=== PATIENT | female | born 1955 | race Caucasian/White ===

== ENCOUNTER 2016-10-09 17:26 | Emergency (ER) | payer OTHER ==
[~2016-10-09] VITALS: Ht 154.9 cm; Wt 67.0 kg
[~2016-10-09 17:26] MED LIST: ASPI-664 PO; ATOR20TA38 PO; CARV12.579 PO; FAMO20TA18 PO; FURO20TA3 PO; GABA-526 PO; INSU100C SC; ISOS60TA PO; LANT3I SC; LOSA50TA6 PO; METF-388 PO; NITR0.4T6 SL; PRAS10TA6 PO; RANO500T2 PO; ZOLP5TAB6 PO
[2016-10-09 17:46] VITALS: Ht 154.9 cm; Wt 67.0 kg
[2016-10-09] MEDS ORDERED: morphine 4 MG/ML VIAL IV STA ×2 (18:13→18:18)
[2016-10-09] MEDS ORDERED: ONDANSETRON 4 MG INJ IV STA ×2 (18:13→18:18)
[2016-10-09] MEDS ORDERED: ASPIRIN 325 MG TAB PO STA (18:18)
[2016-10-09 18:44] LABS: BASOPHILS % 0.3 % (0.0-2.0); EOSINOPHILS # 0.2 10^3/ul (0.0-0.5); EOSINOPHILS % 1.7 % (0.0-7.0); HEMATOCRIT 35.7 % (37.0-47.0); HEMOGLOBIN 11.6 g/dl (12.0-16.0); LYMPHOCYTES # 2.2 10^3/ul (0.8-2.9); MEAN CORPUSCULAR HEMOGLOBIN 32.3 pg (29.0-33.0); MEAN CORPUSCULAR HGB CONC 32.6 g/dl (32.0-37.0); MEAN CORPUSCULAR VOLUME 99.1 fl (82.0-101.0); MEAN PLATELET VOLUME 11.1 fl (7.4-10.4); MONOCYTE # 1.2 10^3/ul (0.3-0.9); NEUTROPHIL # 7.3 10^3/ul (1.6-7.5); PLATELET COUNT 267 10^3/UL (140-440); RED CELL DISTRIBUTION WIDTH 13.9 % (11.5-14.5); UNCORRECTED WBC 10.9 10^3/ul (4.8-10.8); WHITE BLOOD COUNT 10.9 10^3/ul (4.8-10.8)
[2016-10-09 18:49] LABS: CONDITION 1
--- NOTE | 2016-10-09 18:51 | RADRPT ---
PROCEDURE: XR Chest. CLINICAL INDICATION: Chest pain. TECHNIQUE: Single frontal view of the chest was obtained COMPARISON: 06/11/2016. FINDINGS: Mild cardiomegaly. Mild patchy air space disease at mid lung and lung bases. There is no pleural effusion or pneumothorax. IMPRESSION: Mild failure. RPTAT: [facility] Physician Monique Date Time Electronically viewed and signed by Nina Chiagn Physician on 10/09/2016 18:50 RS/
[2016-10-09 18:56] LABS: INR 0.85; PROTIME 11.6 Sec (12.2-14.2); PT RATIO 0.9
[2016-10-09 18:57] LABS: PARTIAL THROMBOPLASTIN TIME 30.2 Sec (25.0-35.0)
[2016-10-09 19:07] LABS: CHLORIDE 100 mmol/L (97-110); POTASSIUM 5.5 mmol/L (3.5-5.1); SODIUM 139 mmol/L (135-144)
[2016-10-09 19:10] LABS: ANION GAP 19 (8-16); BLOOD UREA NITROGEN 49 mg/dl (7-20); CARBON DIOXIDE 26 mmol/L (21-31); GLUCOSE 324 mg/dl (70-220)
[2016-10-09 19:11] LABS: CALCIUM 9.2 mg/dl (8.4-10.2)
[2016-10-09 19:20] LABS: B-TYPE NATRIURETIC PEPTIDE 483 PG/ML (0-125)
[2016-10-09 19:32] LABS: TROPONIN-I < 0.012 ng/ml (0.00-0.12)
[2016-10-09] MEDS ORDERED: NITROGLYCERIN (SL) 0.4 MG TAB SL ONE (21:30)
[2016-10-09 23:28] VITALS: BP 106/68; PULSE 84; RESP 18; TEMP 98.6
--- NOTE | 2016-10-09 23:55 | ERA ---
ER Documentation Chief Complaint Date/Time DATE: 10/09/16 TIME: 23:46 Chief Complaint CHEST PAIN STARTED TODAY RADIATES TO LEFT ARM HPI This 61-year-old female presents with substernal chest pain rating down her left arm described as a pressure-like sensation associated with mild shortness of breath. Chest pain began approximately 4 hours ago and has improved somewhat. She states that this is the same feeling she had when she had her heart attack here in January. She denies nausea or vomiting. I reviewed her electronic medical record ejection had a ST elevation MT in January. ROS All systems reviewed and are negative except as per history of present illness. Medications Home Meds Active Scripts Ranolazine* (Ranexa*) 500 Mg Tab.sr.12h, 1000 MG PO Q12 for 90 Days, #90 TAB 7 Refills Prov:MARCOS STEPHENS MD 02/03/16 Prasugrel Hydrochloride* (Effient*) 10 Mg Tablet, 10 MG PO DAILY for 90 Days, # 90 TAB 2 Refills Prov:MARCOS STEPHENS MD 02/03/16 Reported Medications Isosorbide Mononitrate* (Isosorbide Mononitrate*) 60 Mg Tab.er.24h, 90 MG PO DAILY, TAB 06/11/16 Furosemide* (Furosemide*) 20 Mg Tablet, 20 MG PO DAILY, #30 TAB 06/11/16 Famotidine* (Famotidine*) 20 Mg Tablet, 20 MG PO QHS, #30 TAB 06/11/16 Metformin Hcl* (Metformin Hcl*) 1,000 Mg Tablet, 1000 MG PO WITH BREAKFAST, #30 TAB 06/11/16 Aspirin* (Aspirin* (EC)) 81 Mg Tablet.dr, 81 MG PO DAILY, TAB 09/25/15 Gabapentin* (Gabapentin*) 600 Mg Tablet, 600 MG PO QHS, #60 TAB 09/25/15 Carvedilol* (Carvedilol*) 12.5 Mg Tablet, 12.5 MG PO BID, TAB 09/25/15 Insulin Lispro (Humalog) 100 U/Ml Cartridge, 5-8 UNITS SC SLIDING SCALE AC, EA 08/20/15 Nitroglycerin* (Nitroglycerin* SL) 0.4 Mg Tab.subl, 0.4 MG SL Q5MIN Y for CHEST PAIN, BOTTLE 04/01/15 Zolpidem Tartrate* (Zolpidem Tartrate*) 5 Mg Tablet, 5 MG PO HS Y, TAB 01/14/15 Insulin Glargine* (Lantus*) 100 Unit/Ml Soln, 24 UNIT SC QHS, EA 10/10/14 Atorvastatin Calcium* (Atorvastatin Calcium*) 20 Mg Tablet, 20 MG PO DAILY 07/19/13 Losartan Potassium* (Losartan Potassium*) 50 Mg Tablet, 50 MG PO DAILY 07/19/13 Allergies Allergies: Coded Allergies: No Known Allergies (Verified Allergy, Unknown, 10/09/16) PMhx/Soc History of Surgery: Yes (LEFT NEPHRECTOMY) Anesthesia Reaction: No Hx Neurological Disorder: No Hx Respiratory Disorders: No Hx Psychiatric Problems: No Hx Miscellaneous Medical Probl: No Hx Alcohol Use: No Hx Substance Use: No Hx Tobacco Use: No Smoking Status: Unknown if ever smoked Physical Exam Vitals Vital Signs Date Time Temp Pulse Resp B/P Pulse Ox O2 Delivery O2 Flow Rate FiO2 10/09/16 23:28 98.6 84 18 106/68 100 Nasal Cannula 2.0 10/09/16 21:27 92 18 104/61 97 Nasal Cannula 2.0 10/09/16 19:42 99.0 101 18 151/78 98 Nasal Cannula 2.0 10/09/16 18:27 109 18 144/78 98 Nasal Cannula 2.0 10/09/16 18:00 Nasal Cannula 2 10/09/16 17:46 97.8 120 20 154/71 99 Physical Exam Const: [] No distress Head: Atraumatic Eyes: Normal Conjunctiva ENT: Normal External Ears, Nose and Mouth. Neck: Full range of motion..~ No meningismus. Resp: Clear to auscultation bilaterally Cardio: Regular tachycardia, no murmurs Abd: Soft, non tender, non distended. Normal bowel sounds Skin: No petechiae or rashes Back: No midline or flank tenderness Ext: No cyanosis, or edema Neur: Awake and alert and oriented 3, no focal deficits Psych: Normal Mood and Affect Result Diagram: 10/09/16181910/09/161819 Results 24 hrs Laboratory Tests Test 10/09/16 18:20 Activated Partial Thromboplast Time 30.2Sec Anion Gap 19 B-Type Natriuretic Peptide 483PG/ML Basophils # 0.010^3/ul Basophils % 0.3% Blood Morphology Comment Blood Urea Nitrogen 49mg/dl Calcium Level 9.2mg/dl Carbon Dioxide Level 26mmol/L Chloride Level 100mmol/L Creatinine 1.20mg/dl Eosinophils # 0.210^3/ul Eosinophils % 1.7% Glucose Level 324mg/dl Hematocrit 35.7% Hemoglobin 11.6g/dl INR International Normalized Ratio 0.85 Lymphocytes # 2.210^3/ul Lymphocytes % 20.0% Mean Corpuscular Hemoglobin 32.3pg Mean Corpuscular Hemoglobin Concent 32.6g/dl Mean Corpuscular Volume 99.1fl Mean Platelet Volume 11.1fl Monocytes # 1.210^3/ul Monocytes % 11.0% Neutrophils # 7.310^3/ul Neutrophils % 67.0% Nucleated Red Blood Cells # 0.010^3/ul Nucleated Red Blood Cells % 0.0/100WBC Platelet Count 58241^3/UL Potassium Level 5.5mmol/L Prothrombin Time 11.6Sec Prothrombin Time Ratio 0.9 Red Blood Count 3.6010^6/ul Red Cell Distribution Width 13.9% Sodium Level 139mmol/L Troponin I < 0.012ng/ml White Blood Count 10.910^3/ul Current Medications Medications (Trade) Dose Ordered Sig/Glenn Route PRN Reason Start Time Stop Time Status Last Admin Dose Admin Morphine Sulfate (morphine) 4 mg ONCE STAT IV 10/09/16 18:13 10/09/16 18:15 DC 10/09/16 18:19 Ondansetron HCl (Zofran Inj) 4 mg ONCE STAT IV 10/09/16 18:13 10/09/16 18:15 DC 10/09/16 18:19 Aspirin (Aspirin) 325 mg ONCE STAT PO 10/09/16 18:18 10/09/16 18:19 DC 10/09/16 18:18 Morphine Sulfate (morphine) 4 mg ONCE STAT IV 10/09/16 18:18 10/09/16 18:19 DC Ondansetron HCl (Zofran Inj) 4 mg ONCE STAT IV 10/09/16 18:18 10/09/16 18:19 DC Nitroglycerin (Nitroglycerin (Sl Tab) 0.4 Mg) 1 tab ONCE ONCE SL 10/09/16 21:30 10/09/16 21:31 DC 10/09/16 21:27 Procedures/MDM This 61-year-old female presents with chest pain similar to her prior heart attack with initial tachycardia that was resolved with pain control. She was given aspirin, morphine, nitroglycerin. Also elevated potassium at 5.5 and was given 20 mg of Lasix to reduce potassium. She had a hyperglycemia and was given 500 mL of normal saline to decrease this. Her chest pain did diminish significantly in the emergency room she had only mild chest pain present. Spoke with Dr. Sloan, of [facility], stated he would accept transfer the patient should be transferred for insurance reasons to [facility]. Gary spoke with the patient and her family about this insurance base transfer. Initial troponin is negative and EKGs are nonischemic. Patient be admitted for further troponin trending and workup. EKG interpretation #1: Sinus tachycardia rate of 123, indeterminate axis, no ST or T-wave changes concerning for acute ischemia, Q waves in septal leads, EKG interpretation #2: Sinus tachycardia rate of 106, left axis deviation, no ST or T-wave changes concerning for acute ischemia Chest x-ray interpretation: I See no acute process, mild pulmonary vascular congestion, no pulmonary edema, pneumothorax no infiltrates, no fractures teletypesetter monitor interpretation: Initial sinus tachycardia was transitioned to normal sinus rhythm. Departure Diagnosis: Primary Impression: Chest pain Additional Impressions: Hyperglycemia Hyperkalemia Renal insufficiency Condition: Stable RICHY BISHOP DO Oct 09, 2016 23:55
[2016-10-10] MEDS ORDERED: SOD CHLORIDE 0.9% 500 ML IV ONE
[2016-10-10] MEDS ORDERED: FUROSEMIDE 20 MG INJ IV ONE
== END 2016-10-10 00:38 | disposition short-term general hospital (02) ==
LOC: E/R 17:26
DX: R07.9 Chest pain, unspecified (principal); E87.5 Hyperkalemia; N28.9 Disorder of kidney and ureter, unspecified; R06.02 Shortness of breath; E11.65 Type 2 diabetes mellitus with hyperglycemia; Z79.4 Long term (current) use of insulin; Z79.84 Long term (current) use of oral hypoglycemic drugs; Z79.82 Long term (current) use of aspirin
CPT/HCPCS: 36415; 71010; 80048; 83880; 84484; 85025; 85610; 85730; 93005; 96374; 96375; J1940; J2270; J2405; J7040; Z7502; Z7610

== ENCOUNTER 2016-11-10 08:44 | Emergency (ER) | payer OTHER ==
[~2016-11-10] VITALS: Ht 154.9 cm; Wt 70.0 kg
[~2016-11-10 08:44] MED LIST changes: -METF-388 PO; +METF1000 PO
[2016-11-10] MEDS ORDERED: ASPIRIN 81 MG TAB PO STA (08:47)
[2016-11-10] MEDS ORDERED: ONDANSETRON 4 MG INJ IV STA (08:47)
[2016-11-10] MEDS ORDERED: NITROGLYCERIN 2% 1 GM OINT PKT TD STA (08:47)
[2016-11-10 08:50] VITALS: Ht 154.9 cm; Wt 70.0 kg
[2016-11-10] MEDS ORDERED: NITROGLYCERIN (SL) 0.4 MG TAB SL PRN (09:00)
[2016-11-10 09:37] LABS: ALBUMIN 3.9 g/dl (3.3-4.9); CHLORIDE 102 mmol/L (97-110)
--- NOTE | 2016-11-10 09:37 | RADRPT ---
PROCEDURE: Chest x-ray CLINICAL INDICATION: Pain. TECHNIQUE: One-view frontal. COMPARISON: 10/09/2016 FINDINGS: The cardiac silhouette is mildly enlarged. No infiltrates are noted. No hilar abnormalities are identified. No pneumothorax or pleural effusions are visualized. There is resolution of mild pulmonary vascular congestion that is visualized on the previous study. IMPRESSION: 1. No active cardiopulmonary changes. RPTAT: HH .Anoop Muse MD, MD Date Time Electronically viewed and signed by .Anoop Muse MD, on 11/10/2016 09:37 .G/
[2016-11-10 09:38] LABS: SODIUM 143 mmol/L (135-144)
[2016-11-10 09:39] LABS: INR 0.89; PARTIAL THROMBOPLASTIN TIME 25.8 Sec (25.0-35.0); PT RATIO 0.9
[2016-11-10 09:40] LABS: ALANINE AMINOTRANSFERASE 26 IU/L (13-69); ALBUMIN/GLOBULIN RATIO 1.21; ALKALINE PHOSPHATASE 87 IU/L (42-121); ANION GAP 17 (8-16); ASPARTATE AMINO TRANSFERASE 26 IU/L (15-46); BILIRUBIN,INDIRECT 0.1 mg/dl (0-1.1); BILIRUBIN,TOTAL 0.1 mg/dl (0.2-1.3); BLOOD UREA NITROGEN 40 mg/dl (7-20); CALCIUM 9.2 mg/dl (8.4-10.2); CARBON DIOXIDE 28 mmol/L (21-31); CREATININE 1.33 mg/dl (0.44-1.00); GLUCOSE 156 mg/dl (70-220); TOTAL PROTEIN 7.1 g/dl (6.1-8.1)
[2016-11-10 09:49] LABS: BASOPHILS % 0.5 % (0.0-2.0); EOSINOPHILS # 0.4 10^3/ul (0.0-0.5); HEMATOCRIT 33.1 % (37.0-47.0); HEMOGLOBIN 11.1 g/dl (12.0-16.0); LYMPHOCYTES # 2.8 10^3/ul (0.8-2.9); LYMPHOCYTES % 35.3 % (15.0-51.0); MEAN CORPUSCULAR HEMOGLOBIN 33.2 pg (29.0-33.0); MEAN CORPUSCULAR HGB CONC 33.6 g/dl (32.0-37.0); MEAN CORPUSCULAR VOLUME 98.8 fl (82.0-101.0); MEAN PLATELET VOLUME 11.5 fl (7.4-10.4); MONOCYTE # 0.8 10^3/ul (0.3-0.9); MONOCYTES % 10.7 % (0.0-11.0); NEUTROPHIL # 3.8 10^3/ul (1.6-7.5); NEUTROPHILS % 48.5 % (39.0-77.0); PLATELET COUNT 221 10^3/UL (140-440); RED BLOOD COUNT 3.35 10^6/ul (4.20-5.40); RED CELL DISTRIBUTION WIDTH 13.7 % (11.5-14.5); UNCORRECTED WBC 7.9 10^3/ul (4.8-10.8); WHITE BLOOD COUNT 7.9 10^3/ul (4.8-10.8)
[2016-11-10 09:52] LABS: CONDITION 1
[2016-11-10 09:54] LABS: TROPONIN-I < 0.012 ng/ml (0.00-0.12)
--- NOTE | 2016-11-10 10:11 | ERD ---
ER Documentation Chief Complaint Date/Time DATE: 11/10/16 TIME: 10:10 Chief Complaint C/O FLU LIKE S/S AND HAS N/V AP HPI Patient is a 61-year-old female with coronary disease and diabetes who presents with sweating. She said that she woke up from sleep with bilateral ear ringing and sweating. She was vomiting and said that she could not walk and felt "too dizzy". She said that her sugar was 29 at that time. She drank juice and feels better. Upon review of old medical records she was seen on October 09 for chest pain and was transferred to another hospital for admission at that time. She has headache today. She denies chest pain or shortness of breath. Upon review of old medical records she has multiple visits to the ER for various complaints. ROS All systems reviewed and are negative except as per history of present illness. Medications Home Meds Active Scripts Ranolazine* (Ranexa*) 500 Mg Tab.sr.12h, 1000 MG PO Q12 for 90 Days, #90 TAB 7 Refills Prov:MARCOS STEPHENS MD 02/03/16 Prasugrel Hydrochloride* (Effient*) 10 Mg Tablet, 10 MG PO DAILY for 90 Days, # 90 TAB 2 Refills Prov:MARCOS STEPHENS MD 02/03/16 Reported Medications Isosorbide Mononitrate* (Isosorbide Mononitrate*) 60 Mg Tab.er.24h, 90 MG PO DAILY, TAB 06/11/16 Furosemide* (Furosemide*) 20 Mg Tablet, 20 MG PO DAILY, #30 TAB 06/11/16 Famotidine* (Famotidine*) 20 Mg Tablet, 20 MG PO QHS, #30 TAB 06/11/16 Metformin Hcl* (Metformin Hcl*) 1,000 Mg Tablet, 1000 MG PO WITH BREAKFAST, #30 TAB 06/11/16 Aspirin* (Aspirin* (EC)) 81 Mg Tablet.dr, 81 MG PO DAILY, TAB 09/25/15 Gabapentin* (Gabapentin*) 600 Mg Tablet, 600 MG PO QHS, #60 TAB 09/25/15 Carvedilol* (Carvedilol*) 12.5 Mg Tablet, 12.5 MG PO BID, TAB 09/25/15 Insulin Lispro (Humalog) 100 U/Ml Cartridge, 5-8 UNITS SC SLIDING SCALE AC, EA 08/20/15 Nitroglycerin* (Nitroglycerin* SL) 0.4 Mg Tab.subl, 0.4 MG SL Q5MIN Y for CHEST PAIN, BOTTLE 04/01/15 Zolpidem Tartrate* (Zolpidem Tartrate*) 5 Mg Tablet, 5 MG PO HS Y, TAB 01/14/15 Insulin Glargine* (Lantus*) 100 Unit/Ml Soln, 24 UNIT SC QHS, EA 10/10/14 Atorvastatin Calcium* (Atorvastatin Calcium*) 20 Mg Tablet, 20 MG PO DAILY 07/19/13 Losartan Potassium* (Losartan Potassium*) 50 Mg Tablet, 50 MG PO DAILY 07/19/13 Allergies Allergies: Coded Allergies: No Known Allergies (Verified Allergy, Unknown, 10/09/16) PMhx/Soc History of Surgery: Yes (LEFT NEPHRECTOMY) Anesthesia Reaction: No Hx Neurological Disorder: No Hx Respiratory Disorders: No Hx Psychiatric Problems: No Hx Miscellaneous Medical Probl: No Hx Alcohol Use: No Hx Substance Use: No Hx Tobacco Use: No Smoking Status: Never smoker FmHx Family History: diabetes Physical Exam Vitals Vital Signs Date Time Temp Pulse Resp B/P Pulse Ox O2 Delivery O2 Flow Rate FiO2 11/10/16 10:35 98.1 72 16 121/45 100 Room Air 11/10/16 08:50 97.6 68 16 149/50 100 Room Air 11/10/16 08:50 97.8 93 20 148/63 98 Physical Exam Const: Mild distress Head: Atraumatic Eyes: Normal Conjunctiva ENT: Normal External Ears, Nose and Mouth. Neck: Full range of motion..~ No meningismus. Resp: Clear to auscultation bilaterally Cardio: Regular rate and rhythm, no murmurs Abd: Soft, non tender, non distended. Normal bowel sounds Skin: No petechiae or rashes Back: No midline or flank tenderness Ext: No cyanosis, or edema Neur: Awake and alert Psych: Normal Mood and Affect Result Diagram: 11/10/16 0850 11/10/16 0850 Results 24 hrs Laboratory Tests Test 11/10/16 08:50 11/10/16 08:55 Activated Partial Thromboplast Time 25.8Sec Alanine Aminotransferase (ALT/SGPT) 26IU/L Albumin 3.9g/dl Albumin/Globulin Ratio 1.21 Alkaline Phosphatase 87IU/L Anion Gap 17 Aspartate Amino Transf (AST/SGOT) 26IU/L Basophils # 0.010^3/ul Basophils % 0.5% Blood Morphology Comment Blood Urea Nitrogen 40mg/dl Calcium Level 9.2mg/dl Carbon Dioxide Level 28mmol/L Chloride Level 102mmol/L Creatinine 1.33mg/dl Direct Bilirubin 0.00mg/dl Eosinophils # 0.410^3/ul Eosinophils % 5.0% Globulin 3.20g/dl Glucose Level 156mg/dl Hematocrit 33.1% Hemoglobin 11.1g/dl INR International Normalized Ratio 0.89 Indirect Bilirubin 0.1mg/dl Lipase 65U/L Lymphocytes # 2.810^3/ul Lymphocytes % 35.3% Mean Corpuscular Hemoglobin 33.2pg Mean Corpuscular Hemoglobin Concent 33.6g/dl Mean Corpuscular Volume 98.8fl Mean Platelet Volume 11.5fl Monocytes # 0.810^3/ul Monocytes % 10.7% Neutrophils # 3.810^3/ul Neutrophils % 48.5% Nucleated Red Blood Cells # 0.010^3/ul Nucleated Red Blood Cells % 0.0/100WBC Platelet Count 59597^3/UL Potassium Level 4.0mmol/L Prothrombin Time 12.0Sec Prothrombin Time Ratio 0.9 Red Blood Count 3.3510^6/ul Red Cell Distribution Width 13.7% Sodium Level 143mmol/L Total Bilirubin 0.1mg/dl Total Protein 7.1g/dl Troponin I < 0.012ng/ml White Blood Count 7.910^3/ul Bedside Glucose 153mg/dL Current Medications Medications (Trade) Dose Ordered Sig/Glenn Route PRN Reason Start Time Stop Time Status Last Admin Dose Admin Aspirin (Aspirin) 162 mg ONCE STAT PO 11/10/16 08:47 11/10/16 08:57 DC Nitroglycerin (Nitroglycerin 2% Oint) 1 inch ONCE STAT TD 11/10/16 08:47 11/10/16 08:57 DC Nitroglycerin (Nitroglycerin (Sl Tab) 0.4 Mg) 1 tab Q5M UP TO 3 DOSES PRN SL CHEST PAIN 11/10/16 09:00 11/10/16 09:00 DC Ondansetron HCl (Zofran Inj) 4 mg ONCE STAT IV 11/10/16 08:47 11/10/16 08:48 DC 11/10/16 09:19 Procedures/MDM EKG read by me: Rate/Rhythm: Regular rate and rhythm at a rate of 73 Intervals: Normal Impression: No evidence of ischemia or arrhythmia Chest x-ray negative per radiology. Patient is a 61-year-old female with diabetes and coronary disease who presents with hypoglycemia. She had vomiting but feels better now. Her EKG shows no signs of ischemia. Her laboratory studies are basically normal. At this point I do not believe the patient requires admission to the hospital and I believe outpatient management is appropriate. However the patient will need close follow-up with her primary doctor within 24-48 hours for reevaluation. Patient can return sooner for any worsening symptoms. I doubt acute coronary syndrome, bowel obstruction, or appendicitis. Departure Diagnosis: Primary Impression: Vomiting Vomiting type: unspecified Vomiting Intractability: non-intractable Nausea presence: with nausea Qualified Code: R11.2 - Non-intractable vomiting with nausea, unspecified vomiting type Additional Impressions: Anemia Anemia type: unspecified type Qualified Code: D64.9 - Anemia, unspecified type Dehydration Condition: Fair Patient Instructions: Anemia, Vomiting (6Y-Adult) Additional Instructions: Call your primary care doctor TOMORROW for an appointment during the next 1-2 days.See the doctor sooner or return here if your condition worsens before your appointment time. LOS BAH MD Nov 10, 2016 10:11
[2016-11-10 10:35] VITALS: BP 121/45; PULSE 72; RESP 16; TEMP 98.1
== END 2016-11-10 10:37 | disposition home or self-care (01) ==
LOC: E/R 08:44
DX: R11.2 Nausea with vomiting, unspecified (principal); I25.10 Atherosclerotic heart disease of native coronary artery without angina pectoris; E11.9 Type 2 diabetes mellitus without complications; D64.9 Anemia, unspecified; E86.0 Dehydration; R10.9 Unspecified abdominal pain; Z79.4 Long term (current) use of insulin; Z79.84 Long term (current) use of oral hypoglycemic drugs; Z79.82 Long term (current) use of aspirin
CPT/HCPCS: 36415; 71010; 80053; 82962; 83690; 84484; 85025; 85610; 85730; 93005; 96374; J2405; Z7502

== ENCOUNTER 2016-12-14 13:28 | Emergency (ER) | payer OTHER ==
[~2016-12-14] VITALS: Ht 160 cm; Wt 69.5 kg
[2016-12-14 13:57] VITALS: Ht 160 cm; Wt 69.5 kg
[2016-12-14] MEDS ORDERED: ONDANSETRON (ODT) 4 MG TAB ODT STA (15:12)
[2016-12-14] MEDS ORDERED: CIPR500T4 PO (15:31)
[2016-12-14] MEDS ORDERED: CLOT30CR24 TOP (15:31)
[2016-12-14 15:39] VITALS: PULSE 89; RESP 16; TEMP 98
--- NOTE | 2016-12-14 16:16 | ERD ---
DATE OF SERVICE: HISTORY OF PRESENT ILLNESS: The patient is a 61-year-old female coming in complaining of excoriatio ns noted to her right groin. She states that when she got out of the shower, she scratched herself with her nail and she was concerned that she may have reopened up a wound site from a stent placed i september. The patient using Vaseline on the wound site. She has no itching. She has some mild pa in. She also has some dysuria. PAST MEDICAL HISTORY: Denies any other medical problems. ALLERGIES: THERE IS NO ALLERGY TO MEDICATIONS. PAST SURGICAL HISTORY: Stent placement. SOCIAL HISTORY: Denies. REVIEW OF SYSTEMS: A 12-point review of systems ____ refer to HPI for positives, all other systems negative. PHYSICAL EXAMINATION VITAL SIGNS: Temperature is 97.3, pulse is 98, blood pressure is 139/64, respiratory rate 20, O2 sa t 97% on room air. Pain intensity is 7/10. GENERAL: The patient is well-appearing, well-nourished, no acute distress. HEENT: Atraumatic. Conjunctivae are pink. Pupils equal, round, and reactive to light. There is no s cleral icterus. Tympanic membranes clear bilaterally. Oropharynx clear. No nystagmus or photophobia . NECK: C-spine is soft and supple. There is no meningismus. There is no cervical lymphadenopathy. No JVD. No bruits. No goiter. CHEST: Clear to auscultation bilaterally. There are no rales, wheezes or rhonchi. HEART: Regular rate and rhythm. No murmurs, clicks, rubs or gallops. No S3 or S4. ABDOMEN: Normal active bowel sounds heard on auscultation, no distension, no organomegaly. The pat ient has mild tenderness to palpation in the suprapubic region. No CVA tenderness. BACK: No midline or flank tenderness. EXTREMITIES: Equal pulses bilaterally. There is no peripheral clubbing, cyanosis or edema. No focal swelling or erythema. Full range of motion. Grossly neurovascularly intact. NEUROLOGICAL: Alert and oriented. Cranial nerves 2-12 intact. Motor strength in all 4 extremities w ith 5/5 strength. Sensation grossly intact. Normal speech and gait. Babinski negative. DTR 2+ throu ghout. SKIN: The patient has erythema and excoriations noted within the inguinal folds of the right side w ith some moisture and surrounding erythema. No open laceration site. HEMATOLOGIC AND LYMPHATIC: There is no evidence of excessive bruising or lymphedema. No gross cervi shai, axillary, or inguinal lymphadenopathy. PSYCHIATRIC: The patient does not appear anxious or depressed. Normal orientation and judgment. DIAGNOSES: 1. Tinea cruris. 2. Urinary tract infection, symptomatic. EMERGENCY ROOM COURSE: The patient's urine was sent for culture. MEDICAL DECISION MAKING: I have a low suspicion for pyelo, low suspicion for acute abdomen or pelvi c inflammatory infection. I have low suspicion for opening of previous laceration site. The patien t's exam is concerning for fungal infection. I did recommend the patient to keep the site very dry as it was in the skin fold which likely will exacerbate fungal growth. DISCHARGE: The patient is discharged stable. The patient is given prescription for Cipro and ____ ad told to follow up with primary care within 1 to 2 days for reevaluation. The patient was told if symptoms progress or worsen to return to the ER. All other questions answered at time of discharge . Discharge summary given at the time of departure. Patient understood and complied with plan. Dictated By: HAILY NORIEGA for PORFIRIO LOGAN/JOSE Conf#: [id number] DID#: [id number]
== END 2016-12-14 15:40 | disposition home or self-care (01) ==
LOC: FTE 13:28
DX: B35.6 Tinea cruris (principal); N39.0 Urinary tract infection, site not specified; I10 Essential (primary) hypertension; E11.9 Type 2 diabetes mellitus without complications; X58.XXXA Exposure to other specified factors, initial encounter; Y92.9 Unspecified place or not applicable; Z79.4 Long term (current) use of insulin; Z79.82 Long term (current) use of aspirin; Z79.84 Long term (current) use of oral hypoglycemic drugs
CPT/HCPCS: 87086; Z7502; Z7610; 99283

== ENCOUNTER 2017-07-24 10:40 | Inpatient (IN) | END 2017-07-27 00:35 | disposition home or self-care (01) | DRG 682 | DX: I12.9 Hypertensive chronic kidney disease with stage 1 through stage 4 chronic kidney disease, or unspecified chronic kidney disease (principal); N17.0 Acute kidney failure with tubular necrosis; I25.2 Old myocardial infarction; R07.89 Other chest pain; N18.9 Chronic kidney disease, unspecified; Z95.5 Presence of coronary angioplasty implant and graft; Z79.02 Long term (current) use of antithrombotics/antiplatelets; E11.9 Type 2 diabetes mellitus without complications; I95.9 Hypotension, unspecified; M62.830 Muscle spasm of back ==

== ENCOUNTER 2018-12-12 19:22 | Inpatient (IN) | payer MEDICAID, OTHER ==
[~2018-12-12] VITALS: Ht 149.9 cm; Wt 73.6 kg
[~2018-12-12 19:22] MED LIST changes: +ASPI-1046 PO; -ASPI-664 PO; +CLOT30CR24 TOP; -FURO20TA3 PO; +HYDR-3601 PO; -LOSA50TA6 PO; -METF1000 PO; +METF100010 PO; +NITR0.4T32 SL; -NITR0.4T6 SL; -ZOLP5TAB6 PO; +ZOLP5TAB7 PO
--- NOTE | 2018-12-13 00:21 | ERD ---
ER Documentation Chief Complaint Chief Complaint CP TO LEFT ARM, COUGH, HX OF MA, STENTS HPI This is a 63-year-old female with a past medical history of hypertension, hyperlipidemia, diabetes, coronary artery disease with previous MIs status post stenting on Effient, CHF who is presenting with chest pain radiating to the left arm today. The patient has had several days of a fever, chills, productive cough of clear sputum, and she reports that her pain is exacerbated by coughing. However, it did not radiate to the left arm until today. Today, the patient reports that the pain is become more constant and is independent of coughing with associated radiation down the left arm. The symptoms are more similar to her heart attack that she sustained last year, which is ultimately why she came into the emergency department. The patient also endorses mild shortness of breath and nausea. She has not had any vomiting. She does not endorse chest tightness or pleuritic pain or wheezing. She denies diaphoresis. She denies li ghtheadedness or dizziness. The patient does not endorse any other alleviating or exacerbating factors. The patient does not endorse being around any sick contacts. The patient has had no headache or vision changes. The patient does not endorse neck or back pain. The patient denies abdominal pain. The patient denies changes to bowel movements or urination. The patient has had no focal deficits. The patient has had no weakness or numbness or tingling to the face or extremities. ROS All systems reviewed and are negative except as per history of present illness. Medications Home Meds Active Scripts Hydrocodone Bit-Acetaminophen (Hydrocodone Bit-APAP) 5-325MG Tablet, 1 TAB PO Q6H PRN for PAIN LEVEL 4-6, #30 TAB Prov:RENZO BARBOSA MD 07/26/17 Clotrimazole* (Clotrimazole* AF) 1% - 30 Gm Cream.gm., 1 APPLIC TOP BID for 7 Days, TUB Prov:SHILPI GAN PA-C 12/14/16 Ranolazine* (Ranexa*) 500 Mg Tab.sr.12h, 1000 MG PO Q12 for 90 Days, #90 TAB 7 Refills Prov:MARCOS STEPHENS MD 02/03/16 Prasugrel Hydrochloride* (Effient*) 10 Mg Tablet, 10 MG PO DAILY for 90 Days, #90 TAB 2 Refills Prov:MARCOS STEPHENS MD 02/03/16 Reported Medications Isosorbide Mononitrate* (Isosorbide Mononitrate*) 60 Mg Tab.er.24h, 90 MG PO DAILY, TAB 06/11/16 Famotidine* (Famotidine*) 20 Mg Tablet, 20 MG PO QHS, #30 TAB 06/11/16 Metformin Hcl* (Metformin Hcl*) 1,000 Mg Tablet, 1000 MG PO WITH BREAKFAST, #30 TAB 06/11/16 Aspirin* (Aspirin* (EC)) 81 Mg Tablet.dr, 81 MG PO DAILY, TAB 09/25/15 Gabapentin* (Gabapentin*) 600 Mg Tablet, 600 MG PO QHS, #60 TAB 09/25/15 Carvedilol* (Carvedilol*) 12.5 Mg Tablet, 12.5 MG PO BID, TAB 09/25/15 Insulin Lispro (Humalog) 100 U/Ml Cartridge, 5-8 UNITS SC SLIDING SCALE AC, EA 08/20/15 Nitroglycerin* (Nitroglycerin* SL) 0.4 Mg Tab.subl, 0.4 MG SL Q5MIN PRN for CHEST PAIN, BOTTLE 04/01/15 Zolpidem Tartrate* (Zolpidem Tartrate*) 5 Mg Tablet, 5 MG PO HS PRN, TAB 01/14/15 Insulin Glargine* (Lantus*) 100 Unit/Ml Soln, 24 UNIT SC QHS, EA 10/10/14 Atorvastatin Calcium* (Atorvastatin Calcium*) 20 Mg Tablet, 20 MG PO DAILY 07/19/13 Allergies Allergies: Coded Allergies: No Known Allergies (Verified Allergy, Unknown, 10/09/16) PMhx/Soc History of Surgery: Yes (LT KIDNEY REMOVED) Anesthesia Reaction: No Hx Neurological Disorder: Yes (4 STROKES) Hx Respiratory Disorders: No Hx Cardiac Disorders: Yes (HX OF 8 STENT PLACEMENT) Hx Psychiatric Problems: No Hx Miscellaneous Medical Probl: Yes (see H&P) Hx Alcohol Use: No Hx Substance Use: No Hx Tobacco Use: Yes FmHx Family History: diabetes Physical Exam Vitals Vital Signs Date Temp Pulse Resp B/P (MAP) Pulse Ox O2 O2 Flow FiO2 Time Delivery Rate 12/13/18 100.4 02:31 12/13/18 105 18 152/79 98 Room Air 02:30 (103) 12/13/18 100.4 108 18 168/57 98 Room Air 00:30 (94) 12/12/18 100.0 107 18 160/99 98 20:27 (119) Physical Exam Const: No apparent distress, well-developed, well-nourished Head: Normocephalic, Atraumatic Eyes: Normal Conjunctiva. Extraocular movements intact. Pupils equal, round and reactive to light ENT: Normal External Ears, Nose and Mouth. Neck: Full range of motion. No meningismus. Resp: Clear to auscultation bilaterally, No wheezes, rales or rhonchi Cardio: Regular rate and rhythm. No murmurs, rubs or gallops Abd: Soft, non tender, non distended. Normal bowel sounds Skin: No petechiae or rashes Back: No midline tenderness. No CVA tenderness Ext: No cyanosis, or edema Neur: Awake and alert, oriented 4. Cranial nerves intact. No facial droop. Normal strength, sensation and coordination. Psych: Normal Mood and Affect Result Diagram: 12/13/18 0046 12/13/18 0046 Results 24 hrs Laboratory Tests Test 12/13/18 00:46 12/13/18 00:51 White Blood Count 9.5 10^3/ul Red Blood Count 4.05 10^6/ul Hemoglobin 12.4 g/dl Hematocrit 38.8 % Mean Corpuscular Volume 95.8 fl Mean Corpuscular Hemoglobin 30.6 pg Mean Corpuscular Hemoglobin Concent 32.0 g/dl Red Cell Distribution Width 13.7 % Platelet Count 226 10^3/UL Mean Platelet Volume 12.8 fl Immature Granulocytes % 0.400 % Neutrophils % 65.3 % Lymphocytes % 17.5 % Monocytes % 14.2 % Eosinophils % 2.0 % Basophils % 0.6 % Nucleated Red Blood Cells % 0.0 /100WBC Immature Granulocytes # 0.040 10^3/ul Neutrophils # 6.2 10^3/ul Lymphocytes # 1.7 10^3/ul Monocytes # 1.4 10^3/ul Eosinophils # 0.2 10^3/ul Basophils # 0.1 10^3/ul Nucleated Red Blood Cells # 0.0 10^3/ul Prothrombin Time 12.1 Sec Prothrombin Time Ratio 0.9 INR International Normalized Ratio 0.89 Activated Partial Thromboplast Time 28.6 Sec Sodium Level 140 mmol/L Potassium Level 5.3 mmol/L Chloride Level 103 mmol/L Carbon Dioxide Level 26 mmol/L Anion Gap 11 Blood Urea Nitrogen 33 mg/dl Creatinine 1.12 mg/dl Est Glomerular Filtrat Rate mL/min 49 mL/min Glucose Level 199 mg/dl Calcium Level 9.8 mg/dl Total Bilirubin 0.2 mg/dl Direct Bilirubin 0.00 mg/dl Indirect Bilirubin 0.2 mg/dl Aspartate Amino Transf (AST/SGOT) 27 IU/L Alanine Aminotransferase (ALT/SGPT) 17 IU/L Alkaline Phosphatase 138 IU/L Troponin I < 0.012 ng/ml B-Type Natriuretic Peptide 962 PG/ML Total Protein 8.5 g/dl Albumin 4.3 g/dl Globulin 4.20 g/dl Albumin/Globulin Ratio 1.02 Lactic Acid Level 1.1 mmol/L Current Medications Medications Dose Sig/Glenn Start Time Status Last (Trade) Ordered Route PRN Stop Time Admin Dose Reason Admin 650 mg ONCE ONCE 12/13/18 DC 12/13/18 Acetaminophen PO 02:00 02:31 (Tylenol 12/13/18 02:01 Tab) Aspirin 324 mg ONCE ONCE 12/13/18 DC 12/13/18 (Aspirin) PO 02:00 02:32 12/13/18 02:01 Ondansetron 4 mg ER BRIDGE 12/13/18 HCl (Zofran PRN IV 02:30 Inj) NAUSEA/VOMITI 12/14/18 02:29 NG 650 mg ER BRIDGE 12/13/18 Acetaminophen PRN PO 02:30 (Tylenol .MILD PAIN 12/14/18 02:29 Tab) 1-3 OR TEMP Procedures/MDM MDM The patient's presentation warrants further investigation. Previous medical records, if available, were reviewed. LABS The patient's laboratory testing was obtained and reviewed. No emergent treatment was required unless described below. CBC: No E/o systemic infection or severe anemia or thrombocytopenia Chemistry: No E/o severe acidosis or alkalosis or renal failure or liver disease or diabetic ketoacidosis. Mild hyperkalemia, nonemergent. Elevated BUN and creatinine, concerning for dehydration versus intravascular depletion.. PT/INR: No E/o significant coagulopathy Lactate: No E/o severe sepsis Troponin: No E/o acute ischemia BNP: Elevated, potentially related to demand ischemia versus chronic, low clinical suspicion for an acute heart failure exacerbation. Influenza: Negative EKG EKG read by me: Rate/Rhythm: Sinus tachycardia at 112 bpm Intervals: Normal [place]: Left axis deviation. Impression: Q waves in the anterior leads concerning for likely old anterior ischemia. No evidence of acute ischemia. Sinus tachycardia. IMAGING Imaging and Radiology interpretation reviewed. CXR FINDINGS: The cardiomediastinal silhouette is within normal limits. Elevated right hemidiaphragm. The patient body habitus and hypoinflated lungs accentuate pulmonary vascular markings. Mild central vascular crowding is present. The lungs are clear. No signs of pleural fluid or pneumothorax are seen. The osseous structures and soft tissues are unremarkable. Today's plain film examination the chest is similar in appearance to plain film chest examinations dated 11/10/2016 and 07/24/2017. IMPRESSION: No evidence for active cardiopulmonary disease. Electronically viewed and signed by Physician Monique on 12/13/2018 01:54 TREATMENT/DISPOSITION The patient presents with chest pain. The patient has significant cardiac risk factors. I do have some suspicion for the possibility of a cardiac pathology. The patient's age also is a risk factor. The patient's heart score is greater than 3, and I do feel that she would benefit from further assessment in the hospital. The patient was given aspirin in the emergency department. I do feel that the patient's chest pain was exacerbated by an upper respiratory infection. I do suspect a viral etiology. The patient was febrile and tachycardic. That said, the patient has no leukocytosis. The patient does not have evidence of endorgan damage. The patient's lactic acid is within normal limits as well. I have low suspicion for sepsis and I do not feel the patient requires a full septic workup. The patient has a history of heart failure. I do not believe the patient would benefit from a full sepsis bolus of IV fluids. That said, the patient was given a liter of fluids as I am concerned about dehydration and intravascular depletion. The patient's fluid balance will need to be closely monitored in the hospital. I do not see any evidence of pneumonia. I do not feel the patient would benefit from antibiotics. The patient's influenza testing is currently negative. The patient's symptoms have been ongoing for the last 3 days. I do not feel the patient would benefit from Tamiflu even if the study is a false negative. The patient was given Tylenol in the emergency department for her fever. The patient's chest xray does not reveal pneumothorax or pleural effusions or pulmonary edema. The patient does not have a widened mediastinum and does not have signs or symptoms concerning for thoracic aortic aneurysm or dissection. The patient does not have pneumomediastinum or signs concerning for esophageal tear or rupture. The patient has no clinical or radiographic signs of pericardial effusion or tamponade. The patient does not have pneumoperitoneum and I have decreased suspicion of viscus perforation as possible referred pain. The patient does not have a diagnosis of COPD and is not wheezing today. The patient is not tachypneic or hypoxic. The patient is breathing comfortably and without pleuritic pain. The patient is not on hormonal therapy. The patient has no history of clotting or bleeding disorders. The patient has no calf tenderness. The patient has had no hemoptysis. I have decreased suspicion for PE. The patient's troponin and EKG are reassuring. I have low suspicion for acute coronary syndrome. ADMISSION At this time, I feel that the patient requires admission for further evaluation and management. The patient will be admitted to panel in accordance with the patient's insurance. The patient was accepted by Dr. Garland at 0201AM. Disclaimer: Inadvertent spelling and grammatical errors are likely due to EHR/dictation software use and do not reflect on the overall quality of patient care. Note that the electronic time recorded on this note does not necessarily reflect the actual time of the patient encounter. Departure Diagnosis: Primary Impression: Chest pain Chest pain type: unspecified Qualified Codes: R07.9 - Chest pain, unspecified Additional Impressions: Upper respiratory infection URI type: unspecified URI Qualified Codes: J06.9 - Acute upper respiratory infection, unspecified Fever Fever type: unspecified Qualified Codes: R50.9 - Fever, unspecified Tachycardia Dehydration Intravascular volume depletion Hyperkalemia Chronic CHF Heart failure type: unspecified Qualified Codes: I50.9 - Heart failure, unspecified Condition: Serious YOMI GONZALEZ MD Dec 13, 2018 00:21
[2018-12-13] MEDS ORDERED: ACETAMINOPHEN 325 MG TAB PO ONE (02:00)
[2018-12-13] MEDS ORDERED: ASPIRIN 81 MG TAB PO ONE (02:00)
[2018-12-13] MEDS ORDERED: ONDANSETRON 4 MG INJ IV PRN ×2 (02:30→04:30)
[2018-12-13] MEDS ORDERED: ACETAMINOPHEN 325 MG TAB PO PRN ×2 (02:30→04:30)
[2018-12-13] MEDS ORDERED: SOD CHLORIDE 0.9% 1,000 ML IV ONE (03:30)
[2018-12-13] MEDS ORDERED: ZOLPIDEM 5 MG TAB PO PRN (04:30)
[2018-12-13] MEDS ORDERED: GLUCOSE GEL 15 GRAM TUBE PO PRN ×2 (04:30)
[2018-12-13] MEDS ORDERED: GLUCOSE GEL 15 GRAM TUBE BUCCAL PRN (04:30)
[2018-12-13] MEDS ORDERED: NACL 0.9% 3 ML SYG IV SCH (04:30)
[2018-12-13] MEDS ORDERED: GLUCAGON 1 MG INJ IM PRN (04:30)
[2018-12-13] MEDS ORDERED: NITROGLYCERIN (SL) 0.4 MG TAB SL PRN (04:30)
[2018-12-13] MEDS ORDERED: ALBUTEROL/IPRATROPIUM (NEB) 3 ML AMP HHN PRN (04:30)
[2018-12-13] MEDS ORDERED: DEXTROSE 50% 50 ML SYRINGE IV PRN ×2 (04:30)
[2018-12-13] MEDS: LEVOFLOXACIN 500MG/D5W (PMX) 100 ML IVPB SCH (04:31)
[2018-12-13] MEDS: HYDROCODONE/APAP (5/325) TAB PO PRN (04:31)
[2018-12-13] MEDS ORDERED: CLOP75TA19 PO (04:37)
--- NOTE | 2018-12-13 06:26 | HP ---
Date/Time of Note Date/Time of Note DATE: 12/13/18 TIME: 06:18 Assessment/Plan VTE Prophylaxis Pharmacological prophylaxis: heparin Lines/Catheters IV Catheter Type (from Nrsg): Sal[place] Lock Assessment/Plan Assessment/Plan 1. Sepsis, as evidenced by fever and tachycardia: Likely secondary to URI/bronchitis -Supplemental oxygen, aspirin. Empiric antibiotic -Chest x-ray without acute findings. Follow-up culture results 2. Chest pain: Patient with history of CAD with multiple stents: Continue aspirin, Effient, Lipitor, beta-nabila -Rule out ACS 3. Dyslipidemia: Continue statin 4. Hypertension: BP is in acceptable range. Adjust antihypertensives as needed 5. CKD: Monitor renal function closely 6. Mild hyperkalemia: will give Kayexalate. Monitor 7. Difficulty urination -Patient reported that for the past 2 weeks, it has been taking her a longer time to initiate urination. -Will obtain KUB. Depending on the clinical course, this can be followed up with pelvic CT Result Diagram: 12/13/18 0046 12/13/18 0046 Results 24hrs Laboratory Tests Test 12/13/18 00:46 12/13/18 00:51 White Blood Count 9.5 Red Blood Count 4.05 L Hemoglobin 12.4 Hematocrit 38.8 Mean Corpuscular Volume 95.8 Mean Corpuscular Hemoglobin 30.6 Mean Corpuscular Hemoglobin Concent 32.0 Red Cell Distribution Width 13.7 Platelet Count 226 Mean Platelet Volume 12.8 H Immature Granulocytes % 0.400 Neutrophils % 65.3 Lymphocytes % 17.5 Monocytes % 14.2 H Eosinophils % 2.0 Basophils % 0.6 Nucleated Red Blood Cells % 0.0 Immature Granulocytes # 0.040 H Neutrophils # 6.2 Lymphocytes # 1.7 Monocytes # 1.4 H Eosinophils # 0.2 Basophils # 0.1 Nucleated Red Blood Cells # 0.0 Prothrombin Time 12.1 Prothrombin Time Ratio 0.9 INR International Normalized Ratio 0.89 Activated Partial Thromboplast Time 28.6 Sodium Level 140 Potassium Level 5.3 H Chloride Level 103 Carbon Dioxide Level 26 Anion Gap 11 Blood Urea Nitrogen 33 H Creatinine 1.12 H Est Glomerular Filtrat Rate mL/min 49 L Glucose Level 199 Calcium Level 9.8 Total Bilirubin 0.2 Direct Bilirubin 0.00 Indirect Bilirubin 0.2 Aspartate Amino Transf (AST/SGOT) 27 Alanine Aminotransferase (ALT/SGPT) 17 Alkaline Phosphatase 138 H Troponin I < 0.012 B-Type Natriuretic Peptide 962 H Total Protein 8.5 H Albumin 4.3 Globulin 4.20 H Albumin/Globulin Ratio 1.02 Lactic Acid Level 1.1 HPI/ROS Admit Date/Time Admit Date/Time Hx of Present Illness This is a 63-year-old male with a history of hypertension, dyslipidemia, CAD/TN with multiple stents, CKD, CHF who presented to the ER complaining of shortness of breath, cough and chest pain. She stated she started having diffuse chest pain about 3 days ago [place] She took nitroglycerin with relief of symptoms. The next day she started having dry cough. Symptoms been going on for the past 2 days or so. Cough has been productive of clear sputum. Also reported subjective fever/chills. On further questioning she stated it has been taking her a long time to urinate. Denied dysuria. This symptoms started about 2 weeks ago. Who presented to ER, patient was febrile with temperature 100.4, heart rate 108. Chest x-ray without acute findings. Lab shows a creatinine of 1.12 and potassium 5.3 otherwise basic labs within acceptable range. PMH/Family/Social Past Medical History Past Surgical History Past Surgical Hx: other (see hpi) Family History Significant Family History: other Social History Smoking Status: Unknown if ever smoked Drug Use: other Exam Constitutional: other (no acute distress) Eyes: EOMI, PERRL Neck: supple Respiratory: normal air movement Cardiovascular: nl pulses Gastrointestinal: soft Extremities: normal pulses Medications Current Medications Ondansetron HCl (Zofran Inj) 4 mg ER BRIDGE PRN IV NAUSEA/VOMITING; Start 12/13/18 at 02:30; Stop 12/14/18 at 02:29 Acetaminophen (Tylenol Tab) 650 mg ER BRIDGE PRN PO .MILD PAIN 1-3 OR TEMP; Start 12/13/18 at 02:30; Stop 12/14/18 at 02:29 IV Flush (NS 3 ml) 3 ml PER PROTOCOL IV ; Start 12/13/18 at 04:30 Ondansetron HCl (Zofran Inj) 4 mg Q6H PRN IV NAUSEA/VOMITING; Start 12/13/18 at 04:30 Nitroglycerin (Nitroglycerin (Sl Tab) 0.4 Mg) 1 tab Q5M PRN SL .CHEST PAIN; Start 12/13/18 at 04:30 Acetaminophen (Tylenol Tab) 650 mg Q6H PRN PO .PAIN 1-3 OR TEMP; Start 12/13/18 at 04:30 Albuterol/ Ipratropium (Duoneb) 3 ml Q2H RESP THERAPY PRN HHN SHORTNESS OF BREATH; Start 12/13/18 at 04:30 Diagnostic Test (Pha) (Accu-Chek) 1 ea 02 XX ; Start 12/14/18 at 02:00 Insulin Aspart (Novolog Insulin Pen) NOVOLOG *MILD* ALGORITHM WITH MEALS BEDTIME SC ; Start 12/13/18 at 08:00 Aspirin (Halfprin) 81 mg DAILY PO ; Start 12/13/18 at 09:00 Atorvastatin Calcium (Lipitor) 20 mg DAILY PO ; Start 12/13/18 at 09:00 Carvedilol (Coreg) 12.5 mg BID PO ; Start 12/13/18 at 09:00 Famotidine (Pepcid) 20 mg QHS PO ; Start 12/13/18 at 21:00 Gabapentin (Neurontin) 600 mg QHS PO ; Start 12/13/18 at 21:00 Acetaminophen/ Hydrocodone Bitart ([place] (5/325)) 1 tab Q6H PRN PO PAIN LEVEL 4-6 Last administered on 12/13/18at 04:31; Admin Dose 1 TAB; Start 12/13/18 at 04:30 Insulin Glargine (Lantus) 24 units QHS SC ; Start 12/13/18 at 21:00 Metformin HCl (Glucophage) 1,000 mg WITH BREAKFAST PO ; Start 12/13/18 at 08:00 Prasugrel (Effient) 10 mg DAILY PO ; Start 12/13/18 at 09:00 Ranolazine (Ranexa) 1,000 mg Q12 PO ; Start 12/13/18 at 09:00 Zolpidem Tartrate (Ambien) 5 mg HS PRN PO insomnia; Start 12/13/18 at 04:30 Levofloxacin/ Dextrose 100 ml @ 100 mls/hr Q24H IVPB Last administered on 12/13/18at 04:31; Admin Dose 100 MLS/HR; Start 12/13/18 at 04:30 Isosorbide Mononitrate (Imdur) 90 mg DAILY PO ; Start 12/13/18 at 09:00 Miscellaneous Information 1 ea NOTE XX ; Start 12/13/18 at 04:30 Glucose (Glutose) 15 gm Q15M PRN PO DECREASED GLUCOSE; Start 12/13/18 at 04:30 Glucose (Glutose) 22.5 gm Q15M PRN PO DECREASED GLUCOSE; Start 12/13/18 at 04:30 Dextrose (D50w Syringe) 25 ml Q15M PRN IV DECREASED GLUCOSE; Start 12/13/18 at 04:30 Dextrose (D50w Syringe) 50 ml Q15M PRN IV DECREASED GLUCOSE; Start 12/13/18 at 04:30 Glucagon (Glucagen) 1 mg Q15M PRN IM DECREASED GLUCOSE; Start 12/13/18 at 04:30 Glucose (Glutose) 15 gm Q15M PRN BUCCAL DECREASED GLUCOSE; Start 12/13/18 at 04:30 Coded Allergies: No Known Allergies (Unverified Allergy, Unknown, 12/13/18) Past Surgical History Past Surgical Hx: other Family History Significant Family History: diabetes, hypertension Social History Smoking Status: Former smoker Exam/Review of Systems Vital Signs Vitals Vital Signs Date Temp Pulse Resp B/P (MAP) Pulse Ox O2 O2 Flow FiO2 Time Delivery Rate 12/13/18 84 15 143/62 96 Room Air 05:45 (89) 12/13/18 99.7 04:30 OCTAVIA CULLEN MD Dec 13, 2018 06:26
[2018-12-13] MEDS ORDERED: ISOSORBIDE MONONITRATE(SR)60 MG TAB PO SCH (09:00)
[2018-12-13] MEDS: metFORMIN 500 MG TAB PO SCH (09:17)
[2018-12-13] MEDS: PRASUGREL HYDROCHLORIDE 10 MG TABLET PO SCH (09:19)
[2018-12-13] MEDS: ASPIRIN (EC) 81 MG TAB PO SCH (09:20)
[2018-12-13] MEDS: ATORVASTATIN 20 MG TAB PO SCH (09:21)
[2018-12-13] MEDS: ISOSORBIDE MONONITRATE(SR)30 MG TAB PO SCH (09:21)
[2018-12-13] MEDS: INSULIN ASPART [NOVOLOG] 3 ML PEN SC SCH ×4 (09:25→21:30)
[2018-12-13] MEDS: RANOLAZINE (SR) 500 MG TAB PO SCH ×2 (11:01→21:26)
[2018-12-13] MEDS ORDERED: ALBUTEROL 0.083% (NEB) 2.5 MG/3 ML AMP HHN PRN (13:30)
[2018-12-13] MEDS ORDERED: GUAIFENESIN/DM 5ML CUP PO PRN (13:30)
--- NOTE | 2018-12-13 13:57 | PN ---
Date/Time of Note Date/Time of Note DATE: 12/13/18 TIME: 13:55 Assessment/Plan VTE Prophylaxis SCD contraindicated: low risk/ambulating Pharmacological prophylaxis: NA/contraindicated, LMWH Pharm contraindication: low risk/ambulating Lines/Catheters IV Catheter Type (from Nrsg): Saline Lock Assessment/Plan Hospital Course Assessment and plan 1. Atypical chest pain rule out ACS. He? 2. Bronchitis rule out influenza. 3. Chronic kidney disease 4. Chronic coronary disease/old [place] status? 5. Tobacco 6. Possible COPD 7. Cough bronchitis Subjective: Traveled here from [facility]. Cough with no expectoration. Fever chills. Denies any ill contacts. No edema. Atypical chest pain. She did receive her flu shot in June. Objective: Low-grade fever Physical exam No pallor adenopathy JVD Regular no murmur rub gallop Diminished Bowel sounds diminished nontender nondistended overweight no rigidity rebound guarding No edema/Homans Result Diagram: 12/13/18 0046 12/13/18 0046 Results 24hrs Laboratory Tests Test 12/13/18 00:46 12/13/18 00:51 12/13/18 04:38 12/13/18 08:57 White Blood Count 9.5 Red Blood Count 4.05 L Hemoglobin 12.4 Hematocrit 38.8 Mean Corpuscular 95.8 Volume Mean Corpuscular 30.6 Hemoglobin Mean Corpuscular 32.0 Hemoglobin Concent Red Cell 13.7 Distribution Width Platelet Count 226 Mean Platelet Volume 12.8 H Immature 0.400 Granulocytes % Neutrophils % 65.3 Lymphocytes % 17.5 Monocytes % 14.2 H Eosinophils % 2.0 Basophils % 0.6 Nucleated Red Blood 0.0 Cells % Immature 0.040 H Granulocytes # Neutrophils # 6.2 Lymphocytes # 1.7 Monocytes # 1.4 H Eosinophils # 0.2 Basophils # 0.1 Nucleated Red Blood 0.0 Cells # Prothrombin Time 12.1 Prothrombin Time 0.9 Ratio INR International 0.89 Normalized Ratio Activated 28.6 Partial Thromboplast Time Sodium Level 140 Potassium Level 5.3 H Chloride Level 103 Carbon Dioxide Level 26 Anion Gap 11 Blood Urea Nitrogen 33 H Creatinine 1.12 H Est Glomerular 49 L Filtrat Rate mL/min Glucose Level 199 Calcium Level 9.8 Total Bilirubin 0.2 Direct Bilirubin 0.00 Indirect Bilirubin 0.2 Aspartate Amino 27 Transf (AST/SGOT) Alanine 17 Aminotransferase (AL T/SGPT) Alkaline Phosphatase 138 H Troponin I < 0.012 0.013 B-Type Natriuretic 962 H Peptide Total Protein 8.5 H Albumin 4.3 Globulin 4.20 H Albumin/Globulin 1.02 Ratio Lactic Acid Level 1.1 Creatine Kinase 261 H Creatine Kinase 0.5 Index Creatinine Kinase MB 1.38 (Mass) Bedside Glucose 151 Test 12/13/18 09:46 Creatine Kinase 277 H Creatine Kinase 0.6 Index Creatinine Kinase MB 1.80 (Mass) Troponin I < 0.012 Exam/Review of Systems Exam Vitals Vital Signs Date Temp Pulse Resp B/P (MAP) Pulse Ox O2 O2 Flow FiO2 Time Delivery Rate 12/13/18 98.4 87 17 109/62 100 Room Air 12:56 (78) Results Results 24hrs Laboratory Tests Test 12/13/18 00:46 12/13/18 00:51 12/13/18 04:38 12/13/18 08:57 White Blood Count 9.5 Red Blood Count 4.05 L Hemoglobin 12.4 Hematocrit 38.8 Mean Corpuscular 95.8 Volume Mean Corpuscular 30.6 Hemoglobin Mean Corpuscular 32.0 Hemoglobin Concent Red Cell 13.7 Distribution Width Platelet Count 226 Mean Platelet Volume 12.8 H Immature 0.400 Granulocytes % Neutrophils % 65.3 Lymphocytes % 17.5 Monocytes % 14.2 H Eosinophils % 2.0 Basophils % 0.6 Nucleated Red Blood 0.0 Cells % Immature 0.040 H Granulocytes # Neutrophils # 6.2 Lymphocytes # 1.7 Monocytes # 1.4 H Eosinophils # 0.2 Basophils # 0.1 Nucleated Red Blood 0.0 Cells # Prothrombin Time 12.1 Prothrombin Time 0.9 Ratio INR International 0.89 Normalized Ratio Activated 28.6 Partial Thromboplast Time Sodium Level 140 Potassium Level 5.3 H Chloride Level 103 Carbon Dioxide Level 26 Anion Gap 11 Blood Urea Nitrogen 33 H Creatinine 1.12 H Est Glomerular 49 L Filtrat Rate mL/min Glucose Level 199 Calcium Level 9.8 Total Bilirubin 0.2 Direct Bilirubin 0.00 Indirect Bilirubin 0.2 Aspartate Amino 27 Transf (AST/SGOT) Alanine 17 Aminotransferase (AL T/SGPT) Alkaline Phosphatase 138 H Troponin I < 0.012 0.013 B-Type Natriuretic 962 H Peptide Total Protein 8.5 H Albumin 4.3 Globulin 4.20 H Albumin/Globulin 1.02 Ratio Lactic Acid Level 1.1 Creatine Kinase 261 H Creatine Kinase 0.5 Index Creatinine Kinase MB 1.38 (Mass) Bedside Glucose 151 Test 12/13/18 09:46 Creatine Kinase 277 H Creatine Kinase 0.6 Index Creatinine Kinase MB 1.80 (Mass) Troponin I < 0.012 Medications Medication Current Medications Ondansetron HCl (Zofran Inj) 4 mg ER BRIDGE PRN IV NAUSEA/VOMITING; Start 12/13/18 at 02:30; Stop 12/14/18 at 02:29 Acetaminophen (Tylenol Tab) 650 mg ER BRIDGE PRN PO .MILD PAIN 1-3 OR TEMP; Start 12/13/18 at 02:30; Stop 12/14/18 at 02:29 IV Flush (NS 3 ml) 3 ml PER PROTOCOL IV ; Start 12/13/18 at 04:30 Ondansetron HCl (Zofran Inj) 4 mg Q6H PRN IV NAUSEA/VOMITING; Start 12/13/18 at 04:30 Nitroglycerin (Nitroglycerin (Sl Tab) 0.4 Mg) 1 tab Q5M PRN SL .CHEST PAIN; Start 12/13/18 at 04:30 Acetaminophen (Tylenol Tab) 650 mg Q6H PRN PO .PAIN 1-3 OR TEMP; Start 12/13/18 at 04:30 Albuterol/ Ipratropium (Duoneb) 3 ml Q2H RESP THERAPY PRN HHN SHORTNESS OF BREATH; Start 12/13/18 at 04:30 Diagnostic Test (Pha) (Accu-Chek) 1 ea 02 XX ; Start 12/14/18 at 02:00 Insulin Aspart (Novolog Insulin Pen) NOVOLOG *MILD* ALGORITHM WITH MEALS BEDTIME SC Last administered on 12/13/18at 09:25; Admin Dose 1 UNIT; Start 12/13/18 at 08:00 Aspirin (Halfprin) 81 mg DAILY PO Last administered on 12/13/18at 09:20; Admin Dose 81 MG; Start 12/13/18 at 09:00 Atorvastatin Calcium (Lipitor) 20 mg DAILY PO Last administered on 12/13/18at 09:21; Admin Dose 20 MG; Start 12/13/18 at 09:00 Carvedilol (Coreg) 12.5 mg BID PO Last administered on 12/13/18at 09:19; Admin Dose 12.5 MG; Start 12/13/18 at 09:00 Famotidine (Pepcid) 20 mg QHS PO ; Start 12/13/18 at 21:00 Gabapentin (Neurontin) 600 mg QHS PO ; Start 12/13/18 at 21:00 Acetaminophen/ Hydrocodone Bitart ([place] (5/325)) 1 tab Q6H PRN PO PAIN LEVEL 4-6 Last administered on 12/13/18at 04:31; Admin Dose 1 TAB; Start 12/13/18 at 04:30 Insulin Glargine (Lantus) 24 units QHS SC ; Start 12/13/18 at 21:00 Metformin HCl (Glucophage) 1,000 mg WITH BREAKFAST PO Last administered on 12/13/18at 09:17; Admin Dose 1,000 MG; Start 12/13/18 at 08:00 Prasugrel (Effient) 10 mg DAILY PO Last administered on 12/13/18at 09:19; Admin Dose 10 MG; Start 12/13/18 at 09:00 Ranolazine (Ranexa) 1,000 mg Q12 PO Last administered on 12/13/18at 11:01; Admin Dose 1,000 MG; Start 12/13/18 at 09:00 Zolpidem Tartrate (Ambien) 5 mg HS PRN PO insomnia; Start 12/13/18 at 04:30 Levofloxacin/ Dextrose 100 ml @ 100 mls/hr Q24H IVPB Last administered on 12/13/18at 04:31; Admin Dose 100 MLS/HR; Start 12/13/18 at 04:30 Isosorbide Mononitrate (Imdur) 90 mg DAILY PO Last administered on 12/13/18at 09:21; Admin Dose 90 MG; Start 12/13/18 at 09:00 Miscellaneous Information 1 ea NOTE XX ; Start 12/13/18 at 04:30 Glucose (Glutose) 15 gm Q15M PRN PO DECREASED GLUCOSE; Start 12/13/18 at 04:30 Glucose (Glutose) 22.5 gm Q15M PRN PO DECREASED GLUCOSE; Start 12/13/18 at 04:30 Dextrose (D50w Syringe) 25 ml Q15M PRN IV DECREASED GLUCOSE; Start 12/13/18 at 04:30 Dextrose (D50w Syringe) 50 ml Q15M PRN IV DECREASED GLUCOSE; Start 12/13/18 at 04:30 Glucagon (Glucagen) 1 mg Q15M PRN IM DECREASED GLUCOSE; Start 12/13/18 at 04:30 Glucose (Glutose) 15 gm Q15M PRN BUCCAL DECREASED GLUCOSE; Start 12/13/18 at 04:30 Albuterol (Proventil 0.083% (Neb)) 1.25 mg Q4H RESP THERAPY PRN HHN WHEEZING AND SOB; Start 12/13/18 at 13:30 Guaifenesin/ Dextromethorphan (Robitussin Dm Liquid Cup) 10 ml Q4H PRN PO COUGH; Start 12/13/18 at 13:30 AMISHA FLORES MD Dec 13, 2018 13:57
--- NOTE | 2018-12-13 15:45 | RADRPT ---
Echocardiogram Report Patient Name: ISRAEL LEMONSPatient ID: [id number] : 1955 (63y 11m)Study Date: 12/13/2018 8:35:02 AM Gender: FAccession #: [id number] Tech: Fran Machado RDCS Location: [facility] Ref.Physician: OCTAVIA CULLEN Height(Cm): BSA: Weight(Kg): Quality: GoodAccount #: Procedures: Echocardiographic Report: Transthoracic echocardiogram with complete 2D, M-Mode, and doppler examination. Indications: Chest Pain. Measurements: 2D/M Mode Doppler Measurement Value Normal Range Measurement Value Normal Range LVIDd 2D 3.9 [ 3.8 - 5.2 ] cm AV Peak Sonny 1.5 [ 100.0 - 170.0 ] cm/sec LVIDs 2D 2.3 [ 2.2 - 3.5 ] cm AV Peak PG 9.0 [ 2.0 - 9.0 ] mmHg LVPWd 2D 1.1 [ 0.6 - 0.9 ] cm LVOT Peak Sonny 1.0 [ 70.0 - 110.0 ] cm/sec IVSd 2D 1.1 [ 0.6 - 0.9 ] cm LVOT Peak PG 4.0 [ 2.0 - 6.0 ] mmHg IVS/LVPW 2D 1.0 ratio MV E Peak Sonny 1.0 [ 60.0 - 130.0 ] cm/sec AoR Diam 2D 2.4 [ 2.3 - 3.1 ] cm MV A Peak Sonny 1.2 [ 100.0 - 120.0 ] cm/sec LA/Ao 2D 2 ratio MV E/A 0.9 [ 0.8 - 1.5 ] ratio LA Dimen 2D 3.6 [ 2.7 - 3.8 ] cm MV Decel Time 85 [ 104 - 258 ] msec Lat E` Sonny 0.1 [ 10.0 - 15.0 ] cm/sec MV E/A 0.9 [ 0.8 - 1.5 ] ratio TR Peak Sonny 2.1 [ 100.0 - 280.0 ] cm/sec TR Peak PG 17.0 mmHg RVSP 20.0 [ 10.0 - 36.0 ] mmHg RA Pressure 3.0 mmHg Findings: Left Ventricle: Normal left ventricular systolic function. Normal left ventricular cavity size. Mild concentric left ventricular hypertrophy. Ejection fraction is visually estimated at 60 %. Tissue Doppler/Mitral Doppler indices are consistent with impaired relaxation (Stage I diastolic dysfunction). Right Ventricle: Normal right ventricular size. Normal right ventricular systolic function. Left Atrium: The left atrium is normal in size. Right Atrium: The right atrium is normal in size. Mitral Valve: Mitral valve leaflets appear mildly thickened. Mild mitral annular calcification. Mild mitral valve regurgitation. Aortic Valve: No hemodynamically significant aortic stenosis by doppler. Aortic cusps appear mildly calcified. Mild aortic valve regurgitation. Tricuspid Valve: Normal appearance of the tricuspid valve. Estimated peak PA systolic pressure 20 mmHg. There is trace tricuspid regurgitation. Pulmonic Valve: Normal pulmonic valve appearance. Pericardium: Normal pericardium with no significant pericardial effusion. Aorta: Normal aortic root. IVC: Normal size and normal respiratory collapse consistent with normal right atrial pressure. Conclusions: Normal left ventricular systolic function. Normal left ventricular cavity size. Mild concentric left ventricular hypertrophy. Ejection fraction is visually estimated at 60 %. Tissue Doppler/Mitral Doppler indices are consistent with impaired relaxation (Stage I diastolic dysfunction). Normal right ventricular size. Normal right ventricular systolic function. The left atrium is normal in size. The right atrium is normal in size. Mild mitral valve regurgitation. No hemodynamically significant aortic stenosis by doppler. Mild aortic valve regurgitation. There is trace tricuspid regurgitation. Normal pericardium with no significant pericardial effusion. Electronically Signed By: Oswalod Capone 2018-12-13 15:44:06 PDT
[2018-12-13 17:47] VITALS: PULSE 91
[2018-12-13 17:59] VITALS: Ht 149.9 cm; Wt 73.6 kg
[2018-12-13 18:42] VITALS: BP 150/59; PULSE 91; RESP 18
[2018-12-13 20:00] VITALS: PULSE 84
[2018-12-13 20:08] VITALS: BP_SYST 145; BP_SYST 150; BP_DIAS 59; BP_DIAS 65; PULSE 88; PULSE 91; RESP 20
[2018-12-13] MEDS ORDERED: GABAPENTIN 300 MG CAP PO SCH (21:00)
[2018-12-13] MEDS ORDERED: INSULIN GLARGINE [LANTus] (100 UNITS/ML) SYG SC SCH (21:00)
[2018-12-13] MEDS ORDERED: FAMOTIDINE 20 MG TAB PO SCH (21:00)
[2018-12-13] MEDS: OSELTAMIVIR 30 MG CAP PO SCH ×2 (21:25→21:33)
[2018-12-14] VITALS (10 sets, daily range): BP systolic 111–171; BP diastolic 54–74; PULSE 67–86; RESP 18–22
[2018-12-14] MEDS: HYDROCODONE/APAP (5/325) TAB PO PRN (00:19)
[2018-12-14] MEDS ORDERED: ACCU-CHEK XX SCH (02:00)
[2018-12-14] MEDS: LEVOFLOXACIN 500MG/D5W (PMX) 100 ML IVPB SCH (05:40)
[2018-12-14] MEDS: ISOSORBIDE MONONITRATE(SR)30 MG TAB PO SCH (09:46)
[2018-12-14] MEDS: RANOLAZINE (SR) 500 MG TAB PO SCH (09:46)
[2018-12-14] MEDS: metFORMIN 500 MG TAB PO SCH (09:46)
[2018-12-14] MEDS: ASPIRIN (EC) 81 MG TAB PO SCH (09:46)
[2018-12-14] MEDS: ATORVASTATIN 20 MG TAB PO SCH (09:46)
[2018-12-14] MEDS: OSELTAMIVIR 30 MG CAP PO SCH (09:47)
[2018-12-14] MEDS: INSULIN ASPART [NOVOLOG] 3 ML PEN SC SCH ×3 (09:56→18:06)
--- NOTE | 2018-12-14 10:43 | PDOCDIS ---
Discharge Instructions CONDITION [id number] Patient Condition: [id number] Stable HOME CARE INSTRUCTIONS: [id number] Diet Instructions: [id number] Activity Restrictions: [id number] Slowly Increase Activity Do not Drive FOLLOW UP/APPOINTMENTS Follow-up Plan appt primary 1AMISHA Shah MD Dec 14, 2018 10:42
[2018-12-14] MEDS ORDERED: OSEL30CA PO (10:46)
[2018-12-14] MEDS ORDERED: GUAI120S26 PO (10:46)
[2018-12-14] MEDS ORDERED: ALBU90AE INHALATION (10:46)
[2018-12-14] MEDS ORDERED: ACET325T33 PO (10:46)
[2018-12-14] MEDS ORDERED: MAGNESIUM SULFATE 3 GM in DEXTROSE 5% 100 ML IVPB ONE (11:30)
[2018-12-14] MEDS: PRASUGREL HYDROCHLORIDE 10 MG TABLET PO SCH (11:36)
--- NOTE | 2018-12-14 12:51 | DS ---
Date/Time of Note Date/Time of Note DATE: 12/14/18 TIME: 12:48 Discharge Summary Admission/Discharge Info Admit Date/Time Dec 13, 2018 at 02:06 Discharge Date/Time Patient Condition: Stable Procedures Chest x-ray: No acute process KUB: No acute process Influenza A positive Creatinine 1.2 A1c 0.1 Hx of Present Illness Evaluated managed for chest pain. Hospital Course Hospitalist coverage/hospital course Admitted for atypical chest pain. Has been having bronchitis cough lately. Some travel ill contacts. Influenza test positive. Personally stable odalys erating diet fit for discharge. Assessment and plan 1. Atypical chest pain ruled out ACS. Treat bronchitis/influenza 2. Bronchitis/ influenza. 3. Chronic kidney disease 4. Chronic coronary disease/old [place] status? 5. Tobacco, past 6. Possible COPD consider outpatient PFTs 7. Type 2 diabetes A1c 10.1. Will defer to primary to adjust/titrate therapy Subjective: Traveled here from [facility]. Cough with no expectoration. Fever chills. Denies any ill contacts. No edema. Atypical chest pain. She did receive her flu shot in June. Objective: Low-grade fever Physical exam No pallor adenopathy JVD Regular no murmur rub gallop Diminished Bowel sounds diminished nontender nondistended overweight no rigidity rebound guarding No edema/Homans Home Meds Active Scripts Albuterol Sulfate (Proair Respiclick) 90 Mcg Aer.pow.ba, 2 PUFFS INHALATION Q6 PRN for SHORTNESS OF BREATH, #1 BOTTLE Prov:AMISHA FLORES MD 12/14/18 Rcpvmbmxfml-P-Grhrskigvn Hb* (Guaifenesin* DM Syrup) 120 Ml Syrup, 10 ML PO Q4H PRN for COUGH for 10 Days otc Prov:AMISHA FLORES MD 12/14/18 Acetaminophen* (Tylenol*) 325 Mg Tablet, 650 MG PO Q6H PRN for .PAIN 1-3 OR TEMP for 1 Day, #1 TAB Prov:AMISHA FLORES MD 12/14/18 Oseltamivir Phosphate* (Tamiflu*) 30 Mg Capsule, 30 MG PO BID for 5 Days, #10 CAP Prov:AMISHA FLORES MD 12/14/18 Ranolazine* (Ranexa*) 500 Mg Tab.sr.12h, 1000 MG PO Q12 for 90 Days, #90 TAB 7 Refills Prov:MARCOS STEPHENS MD 02/03/16 Prasugrel Hydrochloride* (Effient*) 10 Mg Tablet, 10 MG PO DAILY for 90 Days, #90 TAB 2 Refills Prov:MARCOS STEPHENS MD 02/03/16 Reported Medications Clopidogrel Bisulfate* (Clopidogrel Bisulfate*) 75 Mg Tablet, 75 MG PO DAILY, #30 TAB 12/13/18 Isosorbide Mononitrate* (Isosorbide Mononitrate*) 60 Mg Tab.er.24h, 90 MG PO DAILY, TAB 06/11/16 Famotidine* (Famotidine*) 20 Mg Tablet, 20 MG PO QHS, #30 TAB 06/11/16 Metformin Hcl* (Metformin Hcl*) 1,000 Mg Tablet, 1000 MG PO WITH BREAKFAST, #30 TAB 06/11/16 Aspirin* (Aspirin* (EC)) 81 Mg Tablet.dr, 81 MG PO DAILY, TAB 09/25/15 Gabapentin* (Gabapentin*) 600 Mg Tablet, 600 MG PO QHS, #60 TAB 09/25/15 Carvedilol* (Carvedilol*) 12.5 Mg Tablet, 12.5 MG PO BID, TAB 09/25/15 Insulin Lispro (Humalog) 100 U/Ml Cartridge, 12 UNITS SC TID, EA INJECT 12uINTO THE SKIN 3 TIMES DAILY BEFORE MEALS 08/20/15 Nitroglycerin* (Nitroglycerin* SL) 0.4 Mg Tab.subl, 0.4 MG SL Q5MIN PRN for CHEST PAIN, BOTTLE 04/01/15 Insulin Glargine* (Lantus*) 100 Unit/Ml Soln, 24 UNIT SC QHS, EA 10/10/14 Atorvastatin Calcium* (Atorvastatin Calcium*) 20 Mg Tablet, 20 MG PO DAILY 07/19/13 Discontinued Reported Medications Zolpidem Tartrate* (Zolpidem Tartrate*) 5 Mg Tablet, 5 MG PO HS PRN, TAB 01/14/15 Discontinued Scripts Hydrocodone Bit-Acetaminophen (Hydrocodone Bit-APAP) 5-325MG Tablet, 1 TAB PO Q6H PRN for PAIN LEVEL 4-6, #30 TAB Prov:RENZO BARBOSA MD 07/26/17 Clotrimazole* (Clotrimazole* AF) 1% - 30 Gm Cream.gm., 1 APPLIC TOP BID for 7 Days, TUB Prov:SHILPI GAN PA-C 12/14/16 Follow-up Plan appt primary 1wk Primary Care Provider Care Physician No Primary Time spent on discharge: > 30 minutes Pending Labs Laboratory Tests Test 12/13/18 16:05 12/13/18 18:17 12/13/18 21:22 12/14/18 02:15 Bedside 196 252 239 197 Glucose mg/dL (70-220) mg/dL (70-220) mg/dL (70-220) mg/dL (70-220) Test 12/14/18 05:28 12/14/18 07:51 12/14/18 11:28 White Blood 5.2 Count 10^3/ul (4.8-10 .8) Red Blood 3.61 Count 10^6/ul (4.20-5 .40) Hemoglobin 11.2 g/dl (12.0-16.0 ) Hematocrit 34.9 % (37.0-47.0) Mean 96.7 Corpuscular fl (82.0-101.0) Volume Mean 31.0 Corpuscular pg (29.0-33.0) Hemoglobin Mean 32.1 Corpuscular g/dl (32.0-37.0 Hemoglobin Conc ) ent Red Cell 13.6 Distribution % (11.5-14.5) Width Platelet Count 186 10^3/UL (140-41 5) Mean Platelet 13.2 Volume fl (7.4-10.4) Immature 0.400 Granulocytes % % (0.001-0.429) Neutrophils % 43.7 % (39.0-77.0) Lymphocytes % 31.7 % (15.0-51.0) Monocytes % 19.0 % (0.0-11.0) Eosinophils % 4.6 % (0.0-7.0) Basophils % 0.6 % (0.0-2.0) Nucleated Red 0.0 Blood Cells % /100WBC (0.0-0. 0) Immature 0.020 Granulocytes # 10^3/ul (0.0-0. 031) Neutrophils # 2.3 10^3/ul (1.6-7. 5) Lymphocytes # 1.7 10^3/ul (0.8-2. 9) Monocytes # 1.0 10^3/ul (0.3-0. 9) Eosinophils # 0.2 10^3/ul (0.0-0. 5) Basophils # 0.0 10^3/ul (0.0-0. 1) Nucleated Red 0.0 Blood Cells # 10^3/ul (0.0-0. 0) Erythrocyte 56 mm/Hr (0-30) Sedimentation Rate Sodium Level 139 mmol/L (135-144 ) Potassium 5.2 Level mmol/L (3.5-5.1 ) Chloride Level 101 mmol/L (97-110) Carbon Dioxide 27 Level mmol/L (21-31) Anion Gap 11 (5-13) Blood Urea 35 mg/dl (7-20) Nitrogen Creatinine 1.22 mg/dl (0.44-1.0 0) Est Glomerular 44 mL/min (>60) Filtrat Rate mL/min Glucose Level 195 mg/dl (70-220) Hemoglobin A1c 10.1 % (0-5.9) Calcium Level 9.0 mg/dl (8.4-10.2 ) Magnesium 1.3 Level mg/dl (1.7-2.5) Total 0.1 Bilirubin mg/dl (0.2-1.3) Direct 0.00 Bilirubin mg/dl (0.00-0.2 0) Indirect 0.1 Bilirubin mg/dl (0-1.1) Aspartate Amino 29 IU/L (15-46) Transf (AST/SGO T) Alanine 19 IU/L (13-69) Aminotransferas e (ALT/SGPT) Alkaline 95 Phosphatase IU/L (42-121) Total Protein 7.0 g/dl (6.1-8.1) Albumin 3.5 g/dl (3.3-4.9) Globulin 3.50 g/dl (1.3-3.2) Albumin/Globuli 1.00 n Ratio Triglycerides 137 Level mg/dl (0-149) Cholesterol 121 Level mg/dl (100-200) LDL 59 mg/dl Cholesterol, Calculated HDL 35 Cholesterol mg/dl (35-98) Cholesterol/HDL 3.4 RATIO Ratio Thyroid 2.670 Stimulating MIU/L (0.465-4. Hormone (TSH) 680) Bedside 181 326 Glucose mg/dL (70-220) mg/dL (70-220) Microbiology Date/Time Source Procedure Growth Status 12/13/18 13:35 Nasopharyngeal Influenza Types A,B Direct EIA - Final Complete AMISHA FLORES MD Dec 14, 2018 12:51
--- NOTE | 2018-12-16 18:08 | RADRPT ---
Vent Rate: 76 bpm RR Interval: 0 msec KS Interval: 176 msec QRS Duration: 86 msec QT Interval: 406 msec QTC Interval: 456 msec P-R-T [place]: 14 - 16 - 69 degrees Normal sinus rhythm Low voltage QRS Borderline ECG Electronically Signed By: Eugenio Rodriguez
== END 2018-12-14 19:35 | disposition home or self-care (01) | DRG 195 ==
LOC: E/R 19:22 → 6WM 12-13 02:06
PROVIDERS: ADMIT Internal Medicine; ATTEND Internal Medicine
DX: J10.1 Influenza due to other identified influenza virus with other respiratory manifestations (principal); J40 Bronchitis, not specified as acute or chronic; I25.2 Old myocardial infarction; Z95.5 Presence of coronary angioplasty implant and graft; E78.5 Hyperlipidemia, unspecified; E11.9 Type 2 diabetes mellitus without complications; Z86.73 Personal history of transient ischemic attack (TIA), and cerebral infarction without residual deficits; E86.0 Dehydration; E87.5 Hyperkalemia; I12.9 Hypertensive chronic kidney disease with stage 1 through stage 4 chronic kidney disease, or unspecified chronic kidney disease; N18.9 Chronic kidney disease, unspecified; J44.9 Chronic obstructive pulmonary disease, unspecified; R07.89 Other chest pain
CPT/HCPCS: 36415; 71045; 74018; 80053; 80061; 82550; 82553; 82962; 83036; 83605; 83735; 83880; 84443; 84484; 85025; 85610; 85651; 85730; 87040; 87086; 87400; 93005; 93306; J1815; J1956; J2405; J3475; J7030

== ENCOUNTER 2018-12-29 15:17 | Emergency (ER) | payer MEDICAID, MEDICARE ==
[~2018-12-29] VITALS: Ht 157.5 cm; Wt 73.0 kg
[~2018-12-29 15:17] MED LIST changes: +ACET325T33 PO; +ALBU90AE INHALATION; +CLOP75TA19 PO; -CLOT30CR24 TOP; +GUAI120S26 PO; -HYDR-3601 PO; +OSEL30CA PO; -ZOLP5TAB7 PO
[2018-12-29 15:19] VITALS: BP 165/92; PULSE 113; RESP 24; Ht 157.5 cm; Wt 73.0 kg
[2018-12-29] MEDS ORDERED: ALBUTEROL 0.083% (NEB) 2.5 MG/3 ML AMP HHN STA (15:45)
[2018-12-29] MEDS ORDERED: predniSONE 20 MG TAB PO ONE (16:00)
[2018-12-29] MEDS ORDERED: AZIT250T PO (17:21)
[2018-12-29] MEDS ORDERED: ALBU18HF INHALATION (17:21)
[2018-12-29] MEDS ORDERED: PRED20TA PO (17:21)
--- NOTE | 2018-12-29 17:25 | ERD ---
ER Documentation Chief Complaint Chief Complaint pt is bib self with c/o cough x 8 days, pain with resp pt was dx pneumonia HPI 63-year-old female presents with cough for last week. She feels like she is wheezing. She was recently hospitalized 2 weeks ago the diagnosis of influenza shortness of breath. She has a history of CHF, coronary artery disease with stents. ROS All systems reviewed and are negative except as per history of present illness. Medications Home Meds Active Scripts Azithromycin* (Zithromax*) 250 Mg Tablet, 250 MG PO .ZPACK DIRECTED, #6 TAB TAKE 500 MG (2 TABS) THE FIRST DAY THEN 250 MG (1 TAB) DAYS 2-5 Prov:PORFIRIO PUENTE MD 12/29/18 Albuterol Sulfate* (Ventolin HFA*) 18 Gm Hfa.aer.ad, 2 PUFF INHALATION Q4H, #1 INHALER Prov:PORFIRIO PUENTE MD 12/29/18 Prednisone* (Prednisone*) 20 Mg Tab, 40 MG PO DAILY for 4 Days, TAB Start December 30, 2018 Prov:PORFIRIO PUENTE MD 12/29/18 Albuterol Sulfate (Proair Respiclick) 90 Mcg Aer.pow.ba, 2 PUFFS INHALATION Q6 PRN for SHORTNESS OF BREATH, #1 BOTTLE Prov:AMISHA FLORES MD 12/14/18 Fehjppiijok-Q-Tubhatpnqa Hb* (Guaifenesin* DM Syrup) 120 Ml Syrup, 10 ML PO Q4H PRN for COUGH for 10 Days otc Prov:AMISHA FLORSE MD 12/14/18 Acetaminophen* (Tylenol*) 325 Mg Tablet, 650 MG PO Q6H PRN for .PAIN 1-3 OR TEMP for 1 Day, #1 TAB Prov:AMISHA FLORES MD 12/14/18 Oseltamivir Phosphate* (Tamiflu*) 30 Mg Capsule, 30 MG PO BID for 5 Days, #10 CAP Prov:AMISHA FLORES MD 12/14/18 Ranolazine* (Ranexa*) 500 Mg Tab.sr.12h, 1000 MG PO Q12 for 90 Days, #90 TAB 7 Refills Prov:MARCOS STEPHENS MD 02/03/16 Prasugrel Hydrochloride* (Effient*) 10 Mg Tablet, 10 MG PO DAILY for 90 Days, #90 TAB 2 Refills Prov:MARCOS STEPHENS MD 02/03/16 Reported Medications Clopidogrel Bisulfate* (Clopidogrel Bisulfate*) 75 Mg Tablet, 75 MG PO DAILY, #30 TAB 12/13/18 Isosorbide Mononitrate* (Isosorbide Mononitrate*) 60 Mg Tab.er.24h, 90 MG PO DAILY, TAB 06/11/16 Famotidine* (Famotidine*) 20 Mg Tablet, 20 MG PO QHS, #30 TAB 06/11/16 Metformin Hcl* (Metformin Hcl*) 1,000 Mg Tablet, 1000 MG PO WITH BREAKFAST, #30 TAB 06/11/16 Aspirin* (Aspirin* (EC)) 81 Mg Tablet.dr, 81 MG PO DAILY, TAB 09/25/15 Gabapentin* (Gabapentin*) 600 Mg Tablet, 600 MG PO QHS, #60 TAB 09/25/15 Carvedilol* (Carvedilol*) 12.5 Mg Tablet, 12.5 MG PO BID, TAB 09/25/15 Insulin Lispro (Humalog) 100 U/Ml Cartridge, 12 UNITS SC TID, EA INJECT 12uINTO THE SKIN 3 TIMES DAILY BEFORE MEALS 08/20/15 Nitroglycerin* (Nitroglycerin* SL) 0.4 Mg Tab.subl, 0.4 MG SL Q5MIN PRN for CHEST PAIN, BOTTLE 04/01/15 Insulin Glargine* (Lantus*) 100 Unit/Ml Soln, 24 UNIT SC QHS, EA 10/10/14 Atorvastatin Calcium* (Atorvastatin Calcium*) 20 Mg Tablet, 20 MG PO DAILY 07/19/13 Allergies Allergies: Coded Allergies: No Known Allergies (Unverified Allergy, Unknown, 12/13/18) PMhx/Soc History of Surgery: Yes (Stent x8, left nephrectomy) Anesthesia Reaction: No Hx Neurological Disorder: No Hx Respiratory Disorders: Yes (Pos Influenza A) Hx Cardiac Disorders: Yes (PR, Stent placements, HTN, heart attack) Hx Psychiatric Problems: No Hx Miscellaneous Medical Probl: No Hx Alcohol Use: No Hx Substance Use: No Hx Tobacco Use: No FmHx Family History: No diabetes, No coronary disease, No other Physical Exam Vitals Vital Signs Date Temp Pulse Resp B/P (MAP) Pulse Ox O2 O2 Flow FiO2 Time Delivery Rate 12/29/18 101 20 95 21 16:14 12/29/18 98.0 113 24 165/92 96 15:19 (116) Physical Exam Const: No acute distress Head: Atraumatic Eyes: Normal Conjunctiva ENT: Normal External Ears, Nose and Mouth. TMs and oropharynx normal. Neck: Full range of motion. No meningismus. Resp: Clear to auscultation bilaterally. Mild wheeze and coarse breath sounds without rales or retractions. Cardio: Regular rate and rhythm, no murmurs Abd: Soft, non tender, non distended. Normal bowel sounds Skin: No petechiae or rashes Back: No midline or flank tenderness Ext: No cyanosis, or edema Neur: Awake and alert Psych: Normal Mood and Affect Results 24 hrs Current Medications Medications Dose Sig/Glenn Start Time Status Last (Trade) Ordered Route PRN Stop Time Admin Dose Reason Admin Prednisone 40 mg ONCE ONCE 12/29/18 DC 12/29/18 (Prednisone) PO 16:00 15:54 12/29/18 16:01 Albuterol 5 mg ONCE STAT 12/29/18 DC 12/29/18 (Proventil HHN 15:45 16:14 0.083% (Neb)) 12/29/18 15:47 Procedures/MDM Chest X-ray 1V Interpreted by me: Soft Tissue: No acute abnormalities Bones: No acute abnormalities Mediastinum/Cardiac Silhouette/Lungs: No acute abnormalities patient-no acute findings of infiltrates or pulmonary edema on 1 view chest x-ray. There is a staple in the area of the neck. Physical exam shows a staple corresponding to the area noted on the back of the shirt. Given prednisone 40 mg by mouth and albuterol treatment. Patient felt much better after observation and treatment. She has no signs of hypoxemia, rest or stress, signs of pneumonia, CHF exacerbation, pulmonary edema, cardiac chest pain, additional complications. Doubt PE. EKG: Rate/Rhythm: Normal Sinus Rhythm. Rate equals 101 QRS, ST, T-waves: No changes consistent w/ acute ischemia Impression: No evidence of ischemia or arrhythmia. Impression-no acute findings of ischemia or arrhythmia on EKG. Slight sinus tachycardia. Patient stable throughout ER course. Will treat empirically with Zithromax, prednisone, Ventolin, primary care follow-up and return precautions. The patient was stable with no new complaints during the ER course. Clinically, there is no current evidence to suggest meningitis, sepsis, acute abdomen, pneumonia, stroke, acute coronary syndrome, pulmonary embolism, aortic diss ection or any other emergent condition appearing to require further evaluation or hospitalization. Patient counseled regarding my diagnostic impression and care plan. Prior to discharge all questions answered. Pt agrees with treatment plan and understands strict return precautions. Pt is instructed to follow up with primary care provider within 24-48 hours. Precautionary instructions provided including instructions to return to the ER if not improving or for any worsening or changing symptoms or concerns. Departure Diagnosis: Primary Impression: Cough Condition: Stable Patient Instructions: Bronchitis With Wheezing (Adult) Referrals: DOCTOR,NOT ON STAFF (PCP) Additional Instructions: Cheque otro vez con boyd doctor primario en el proximo baird or regresa para mas o nueva simptomas. PORFIRIO PUENTE MD Dec 29, 2018 17:25
== END 2018-12-29 17:32 | disposition home or self-care (01) ==
LOC: FTE 15:17
DX: R05 Cough (principal); I11.0 Hypertensive heart disease with heart failure; I50.9 Heart failure, unspecified; I25.2 Old myocardial infarction; I25.10 Atherosclerotic heart disease of native coronary artery without angina pectoris; Z79.01 Long term (current) use of anticoagulants; Z79.4 Long term (current) use of insulin; Z79.82 Long term (current) use of aspirin; Z98.61 Coronary angioplasty status
CPT/HCPCS: 71045; 93005; 94664; 99284; J7512